=== PATIENT | male | born 1980 | race Caucasian/White ===

== ENCOUNTER 2023-05-26 13:00 | Outpatient (RCR) | payer OTHER, SELFPAY | END 2023-07-24 17:05 | disposition home or self-care (01) | LOC: HO.PT 13:00 | PROVIDERS: PCP Internal Medicine; Visit Provider Physical Medicine & Rehabilitation Sports Medicine | DX: R93.7 Abnormal findings on diagnostic imaging of other parts of musculoskeletal system (principal); M25.551 Pain in right hip | CPT/HCPCS: 97110; 97162 ==